=== PATIENT | male | born 1970 | race Caucasian/White ===

== ENCOUNTER 2016-08-11 18:21 | Emergency (ER) | payer SELFPAY ==
[~2016-08-11] VITALS: Ht 177.8 cm; Wt 81.6 kg
[2016-08-11 18:42] VITALS: BP 152/86; PULSE 77; RESP 20; TEMP 98.4; O2SAT 97
[2016-08-11] MEDS ORDERED: IBUPROFEN 600 MG TABLET PO ONE (20:00)
[2016-08-11 20:07] VITALS: BP 128/86; PULSE 67; RESP 20; TEMP 98.4; O2SAT 97
== END 2016-08-11 20:07 | disposition home or self-care (01) ==
LOC: SED 18:24
DX: J06.9 Acute upper respiratory infection, unspecified (principal); L03.116 Cellulitis of left lower limb
CPT/HCPCS: 99283